=== PATIENT | male | born 1965 | race Caucasian/White ===

== ENCOUNTER 2023-02-07 15:18 | Emergency (ER) | payer OTHER ==
[2023-02-07] MEDS ORDERED: Sodium Chloride 0.9% 10 ML Syringe FLUSH PRN (15:39)
[2023-02-07] MEDS ORDERED: Ondansetron 4 MG/2 ML SDV IVPUSH ONE (15:49)
[2023-02-07] MEDS ORDERED: Sodium Chloride 0.9% 1,000 ML IV ONE (15:49)
== END 2023-02-07 18:53 | disposition home or self-care (01) ==
LOC: JD.ED 15:18
DX: R11.2 Nausea with vomiting, unspecified (principal); R74.8 Abnormal levels of other serum enzymes
CPT/HCPCS: 36415; 71045; 76705; 80053; 82977; 83690; 83735; 83880; 84484; 85025; 85379; 85610; 85730; 86140; 93005; 96361; 96374; 99285; J2405; J3490; J7030; 93010; 99284